=== PATIENT | male | born 1995 | race African-American/Black ===

== ENCOUNTER 2017-08-01 12:59 | Emergency (ER) | payer OTHER ==
[~2017-08-01] VITALS: Ht 190.5 cm; Wt 112.0 kg
[2017-08-01 16:24] LABS: HEMATOCRIT 49.5 % (38.0-50.0); HEMOGLOBIN 16.8 G/DL (12.5-16.6); MCHC 33.9 G/DL (30.0-36.0); MCV 88.4 FL (86-99); PLATELET COUNT 230 K/uL (156-360); RBC DIS.WIDTH-CV 12.7 % (11.8-14.6); RBC DIS.WIDTH-SD 41.4 % (39-53); WHITE BLOOD COUNT 9.3 K/uL (4.1-10.2)
[2017-08-01 16:26] LABS: ALBUMIN 4.6 g/dL (3.2-4.8); CHLORIDE 104 mEq/L (99-109); POTASSIUM 3.9 mEq/L (3.7-5.4); SODIUM 137 mEq/L (136-147)
[2017-08-01 16:29] LABS: GLUCOSE 92 mg/dL (70-99); TOTAL PROTEIN 8.2 g/dL (6.4-8.3)
[2017-08-01 16:31] LABS: TOTAL BILIRUBIN 0.8 mg/dL (0.0-1.0)
[2017-08-01 16:32] LABS: ALKALINE PHOSPHATASE 49 IU/L (3-129); CREATININE 0.9 mg/dL (0.6-1.3); GFR ESTIMATE (CALCULATED) > 59 mL/min/ (58.99-99999)
[2017-08-01 16:33] LABS: UREA NITROGEN (BUN) 10 mg/dL (9-23)
[2017-08-01 16:34] LABS: AST (GOT) 15 IU/L (2-34)
[2017-08-01 16:35] LABS: ALT (GPT) 12 IU/L (3-49)
[2017-08-01 17:42] LABS: SOURCE URINE
[2017-08-01 17:50] LABS: APPEARANCE CLEAR ((CLEAR)); BILIRUBIN NEGATIVE; BLOOD SMALL; COLOR YELLOW ((YELLOW)); GLUCOSE (STRIP) NEGATIVE; KETONES NEGATIVE; LEUKOCYTES NEGATIVE; NITRITE NEGATIVE; PROTEIN (STRIP) NEGATIVE; UROBILINOGEN 0.2 MG/DL (0.2-1.0)
[2017-08-01 17:59] LABS: BACTERIA RARE /HPF; EPITHELIAL CELLS RARE /HPF; MUCUS NONE SEEN /LPF; RED BLOOD CELLS 30-40 /HPF (0-5); UCUL ADDED? YES
[2017-08-01 20:31] VITALS: BP 136/81
[2017-08-03 14:13] LABS: CHLAMYDIA TRACHOMATIS NEGATIVE; NEISSERIA GONORRHOEAE NEGATIVE
== END 2017-08-01 20:34 | disposition home or self-care (01) ==
LOC: EME 12:59
PROVIDERS: Physician Assistant
DX: A74.9 Chlamydial infection, unspecified (principal); A54.9 Gonococcal infection, unspecified; R31.9 Hematuria, unspecified
CPT/HCPCS: 80053; 81003; 85027; 87086; 87491; 87591; 99281; 99283; J0696

== ENCOUNTER 2017-08-12 20:33 | Emergency (ER) | payer SELFPAY ==
[~2017-08-12] VITALS: Ht 188 cm; Wt 108.9 kg
[2017-08-12 21:27] LABS: ALBUMIN 4.8 g/dL (3.2-4.8)
[2017-08-12 21:28] LABS: CHLORIDE 103 mEq/L (99-109); SODIUM 138 mEq/L (136-147)
[2017-08-12 21:30] LABS: APPEARANCE CLEAR ((CLEAR)); BILIRUBIN NEGATIVE; BLOOD NEGATIVE; COLOR YELLOW ((YELLOW)); GLUCOSE (STRIP) NEGATIVE; KETONES NEGATIVE; LEUKOCYTES NEGATIVE; NITRITE NEGATIVE; PROTEIN (STRIP) NEGATIVE; SPECIFIC GRAVITY 1.025 (1.000-1.030)
[2017-08-12 21:30] LABS: GLUCOSE 125 mg/dL (70-99); TOTAL PROTEIN 8.5 g/dL (6.4-8.3)
[2017-08-12 21:32] LABS: TOTAL BILIRUBIN 0.9 mg/dL (0.0-1.0)
[2017-08-12 21:33] LABS: ALKALINE PHOSPHATASE 52 IU/L (3-129); SERUM ETHYL ALCOHOL < 10 mg/dL
[2017-08-12 21:34] LABS: CREATININE 1.1 mg/dL (0.6-1.3); GFR ESTIMATE (CALCULATED) > 59 mL/min/ (58.99-99999)
[2017-08-12 21:35] LABS: AST (GOT) 21 IU/L (2-34); UREA NITROGEN (BUN) 10 mg/dL (9-23)
[2017-08-12 21:37] LABS: ALT (GPT) 19 IU/L (3-49)
[2017-08-12 21:38] LABS: HEMATOCRIT 49.4 % (38.0-50.0); HEMOGLOBIN 17.5 G/DL (12.5-16.6); MCH 30.6 PG (29.0-34.0); MCHC 35.4 G/DL (30.0-36.0); MCV 86.5 FL (86-99); PLATELET COUNT 239 K/uL (156-360); RBC DIS.WIDTH-SD 38.2 % (39-53); RED BLOOD COUNT 5.71 M/uL (4.00-5.50); WHITE BLOOD COUNT 10.7 K/uL (4.1-10.2)
[2017-08-12 21:44] LABS: AMPHETAMINE NEGATIVE (500 ng/mL); BARBITURATES NEGATIVE (200 ng/mL); BENZODIAZEPINES NEGATIVE (150 ng/mL); BUPRENORPHINE NEGATIVE (10 ng/mL); COCAINE NEGATIVE (150 ng/mL); METHADONE NEGATIVE (200 ng/mL); METHAMPHETAMINE NEGATIVE (500 ng/mL); OPIATES (MORPHINE) NEGATIVE (100 ng/mL); OXYCODONE NEGATIVE (100 ng/mL); PHENCYCLIDINE NEGATIVE (25 ng/mL); PROPOXYPHENE NEGATIVE (300 ng/mL); THC CANNABINOIDS PRESUMPTIVE POSITIVE (50 ng/mL); TRICYCLIC ANTIDEPRESSANTS NEGATIVE (300 ng/mL)
[2017-08-12 22:04] VITALS: BP 169/93
[2017-08-12 22:37] LABS: THYROTROPIN (TSH) 3.7 MIU/L (0.4-5.5)
== END 2017-08-12 22:06 | disposition home or self-care (01) ==
LOC: EME 20:33
PROVIDERS: Emergency Medicine
DX: F32.9 Major depressive disorder, single episode, unspecified (principal); F43.21 Adjustment disorder with depressed mood
CPT/HCPCS: 80053; 81003; 84443; 84999; 85027; 90839; 99281; 99285; G0480